=== PATIENT | female | born 1960 | race Caucasian/White ===

== ENCOUNTER → 2018-12-16 | Outpatient (CLI) | payer OTHER | END | disposition home or self-care (01) | LOC: MRI 07:15 | DX: M51.26 Other intervertebral disc displacement, lumbar region (principal) | CPT/HCPCS: 72148 ==

== ENCOUNTER 2019-01-02 05:20 | Day surgery (SDC) | payer OTHER ==
[~2019-01-02 05:20] MED LIST: SYNTHROID100 MCG PO
== END 2019-01-02 12:55 | disposition home or self-care (01) ==
LOC: CIR.AMB 05:20
DX: M51.26 Other intervertebral disc displacement, lumbar region (principal)